=== PATIENT | male | born 1965 | race Caucasian/White ===

== ENCOUNTER 2017-10-13 19:07 | Emergency (ER) | payer SELFPAY ==
[~2017-10-13 19:07] MED LIST: ASPI-147 PO; LEVO.125 PO; METF500T PO; TRAM50TA PO
[2017-10-13 19:32] VITALS: BP 140/81; PULSE 90; RESP 20; TEMP 98.4; O2SAT 98
--- NOTE | 2017-10-13 19:58 | PD ---
HPI Chief Complaint: Skin Problem Time Seen by Provider: 19:54 Travel History International Travel<30 days: No Contact w/Intl Traveler<30days: No Traveled to known affect area: No History of Present Illness HPI The patient is a 52-year-old male that complains of redness pain on the left little toe and a red streak going from the little toe almost all the way to the left knee. The patient is a metformin controlled diabetic. He noticed the swelling and redness yesterday. He denies any fever. Apparently, his diabetes is under poor control and he has no primary care physician. The infection apparently started as a callus that got infected on the little toe. PFSH Past Medical History Hx Anticoagulant Therapy: Yes (81 MG ASA) Cerebrovascular Accident: Yes (2009) Diabetes: Yes Patient Takes Glucophage: No Diminished Hearing: No Endocrine: Yes Gastrointestinal Disorders: Yes (gallbladder removed) Kidney Stones: Yes Musculoskeletal: Yes (RIGHT HIP AND FEMUR FX) Immunizations Current: Yes Sleep Apnea: Yes Thyroid Disease: Yes (hypo) Tetanus Vaccination: < 5 Years Influenza Vaccination: No Past Surgical History Cholecystectomy: Yes Other Surgery: Yes ("pin in leg") Social History Alcohol Use: No Tobacco Use: No Substance Use: No Allergies-Medications (Allergen,Severity, Reaction): Coded Allergies: No Known Allergies (Unverified Adverse Reaction, Unknown, 10/13/17) Reported Meds & Prescriptions Reported Meds & Active Scripts Active Reported Metformin (Metformin HCl) 500 Mg Tab 500 Mg PO BIDPC With meals Review of Systems Except as stated in HPI: all other systems reviewed are Neg Physical Exam Narrative GENERAL: Well-nourished, well-developed patient in minimal apparent distress with his left little toe discomfort. His vital signs are normal. SKIN: Focused skin assessment warm/dry. There is a red streak extending from the little toe to just below the knee anteriorly. No fluctuance is noted on the little toe or anywhere else. The center of infection appears to be an infected callous on the left little toe. It is lateral and at the point were too tight fitting shoe would rub against. HEAD: Normocephalic. EYES: No scleral icterus. No injection or drainage. NECK: Supple, trachea midline. No JVD or lymphadenopathy. CARDIOVASCULAR: Regular rate and rhythm without murmurs, gallops, or rubs. RESPIRATORY: Breath sounds equal bilaterally. No accessory muscle use. GASTROINTESTINAL: Abdomen soft, non-tender, nondistended. MUSCULOSKELETAL: No cyanosis, or fifth toe shows redness and swelling but no fluctuance. BACK: Nontender without obvious deformity. No CVA tenderness. Data Data Last Documented VS Vital Signs Date Time Temp Pulse Resp B/P (MAP) Pulse Ox O2 Delivery O2 Flow Rate FiO2 10/13/17 19:32 98.4 90 20 140/81 (100) 98 Orders Orders Blood Glucose (10/13/17 19:58) Toe (Min 2vws) (10/13/17 19:58) MDM Medical Decision Making Medical Screen Exam Complete: Yes Emergency Medical Condition: Yes Medical Record Reviewed: Yes Interpretation(s) The blood sugar was 364. Differential Diagnosis Abscess left toe, cellulitis left toe, lymphadenitis left toe, infected callous left toe Narrative Course The patient's infection apparently started as an infected callus. It then spread has a cellulitis and then lymphadenitis. Plan: The patient will be put on Bactrim DS and doxycycline. He needs to elevate his left foot above his heart. He should soak the foot at least twice daily. He should avoid any tight fitting shoes that rubbed against the callus. Procedures Procedure Narrative The callus was unroofed but only a minimal amount of pus was recovered. There was no real abscess underneath the callus. A culture was taken from the area of the unroofed callus. No local anesthetic was needed, the patient tolerated the procedure well without any pain medication. Diagnosis Primary Impression: Acute lymphadenitis Additional Impressions: Cellulitis of fifth toe, left Callus Poorly controlled diabetes mellitus Additional Instructions: As we discussed, you need to follow-up with a primary care physician to get her diabetes under control. He needs to elevate your left foot above your heart as much as possible during both night and day. Soak your foot at least twice daily in warm water. Both antibiotics are taken twice daily for 10 days. If worse, follow-up with a diesel engine erector. Med/Other Pt SpecificInfo: Prescription(s) given Scripts Doxycycline Hyclate (Doxycycline Hyclate) 100 Mg Cap 100 MG PO BID for Infection, #20 CAP 0 Refills Prov: Geoffrey Ham MD 10/13/17 Sulfamethoxazole-Trimethoprim (Bactrim DS) 800-160 Mg Tab 1 TAB PO BID for Infection, #20 TAB 0 Refills Prov: Geoffrey Ham MD 10/13/17 Disposition: 01 DISCHARGE HOME Condition: Stable Geoffrey Ham MD Oct 13, 2017 19:58
[2017-10-13] MEDS ORDERED: BACT800T5 PO (20:24)
[2017-10-13] MEDS ORDERED: DOXY100C PO (20:24)
[2017-10-13] MEDS ORDERED: DOXYCYCLINE HYCLATE 100 MG CAP PO ONE (20:30)
[2017-10-13] MEDS ORDERED: SULFAMETHOXAZOLE-TRIMETHOPRIM DS 800-160 MG TAB PO ONE (20:30)
[2017-10-13 20:51] VITALS: BP 131/72
== END 2017-10-13 20:53 | disposition home or self-care (01) ==
LOC: PHED 19:07
DX: L04.9 Acute lymphadenitis, unspecified (principal); L03.032 Cellulitis of left toe; E11.65 Type 2 diabetes mellitus with hyperglycemia; L84 Corns and callosities; B95.7 Other staphylococcus as the cause of diseases classified elsewhere; Z79.01 Long term (current) use of anticoagulants
CPT/HCPCS: 10060; 87070; 87077; 87186; 87205